=== PATIENT | female | born 1960 | race Caucasian/White ===

== ENCOUNTER 2016-11-09 11:38 | Emergency (ER) | payer OTHER ==
[~2016-11-09] VITALS: Wt 67.0 kg
[2016-11-09] MEDS ORDERED: DIPHTH/TET/ACEL PERTUSS (ADULT) 0.5 ML VIAL IM* ONE (13:00)
--- NOTE | 2016-11-09 13:14 | ERD ---
ER Documentation Chief Complaint Date/Time DATE: 11/09/16 TIME: 13:07 Chief Complaint dog bite to right index finger since yesterday. HPI This 66-year-old female who presents to the emergency department today after sustaining a dog bite to her right index finger. Patient states she was bit by her customer's dog. She states that she went and denies urgent care and was told to get several things done here in the emergency room. Denies any fevers or chills. States she is not up-to-date on her tetanus vaccine. ROS All systems reviewed and are negative except as per history of present illness. Allergies Allergies: Coded Allergies: No Known Allergy (Unverified , 11/09/16) PMhx/Soc Medical and Surgical Hx: pt denies Medical Hx, pt denies Surgical Hx History of Surgery: No Anesthesia Reaction: No Hx Neurological Disorder: No Hx Respiratory Disorders: No Hx Cardiac Disorders: No Hx Psychiatric Problems: No Hx Miscellaneous Medical Probl: No Hx Alcohol Use: No Hx Substance Use: No Hx Tobacco Use: Yes Smoking Status: Current every day smoker Physical Exam Vitals Vital Signs Date Time Temp Pulse Resp B/P Pulse Ox O2 Delivery O2 Flow Rate FiO2 11/09/16 11:47 99.5 89 20 160/75 100 Physical Exam Const: No acute distress, pleasant, Head: Atraumatic Eyes: Normal Conjunctiva ENT: Normal External Ears, Nose and Mouth. Neck: Full range of motion..~ No meningismus. Resp: Clear to auscultation bilaterally Cardio: Regular rate and rhythm, no murmurs Abd: Soft, non tender, non distended. Normal bowel sounds Skin: Index Finger with evidence of 2 dog bites on side of right finger with erythema. MSK: Right index finger with evidence of 2 dog bite on both side of right finger. Full active range of motion. No evidence of tendon involvement. Pulses 2+. Distal neurovascularly intact. Good cap refill. Neur: Awake and alert Psych: Normal Mood and Affect Results 24 hrs Current Medications Medications (Trade) Dose Ordered Sig/[place] Route PRN Reason Start Time Stop Time Status Last Admin Dose Admin Diphtheria/ Tetanus/Acell Pertussis (Adacel) 0.5 ml ONCE ONCE IM* 11/09/16 13:00 11/09/16 13:01 DC 11/09/16 12:43 DIAGNOSTIC IMAGING REPORT Patient: OTILIO RAJPUT : 1960 Age: 56 Sex: F MR #: [id number] DOS: 11/09/16 0000 Ordering MD: SUHAIL BARRAGAN PA-C Location: [facility] Room/Bed: PROCEDURE: XR right 2nd finger(s). CLINICAL INDICATION: Finger pain/ dog bite TECHNIQUE: Three views are available for review. COMPARISON: No prior studies are available for comparison. FINDINGS: There is normal mineralization, architecture and alignment. No fracture or osseous lesion is identified. The joints are unremarkable. The soft tissues are unremarkable. IMPRESSION: Unremarkable examination. RPTAT: HGDB .Didier Magallanes MD, Date Time Electronically viewed and signed by .Didier Magallanes MD, MD on 11/09/2016 13:44 .B/ CC: SUHAIL BARRAGAN PA-C Procedures/MDM This is a 56-year-old female who presents to emergency department today after being bit by a dog yesterday. Patient was seen at [place] urgent care and came here to the emergency department with instructions for an x-ray, tetanus, and blood cultures to rule out osteomyelitis. Patient was also given a prescription for Augmentin and the Mupirocin and Motrin. Prescription given that she brought and indicated she had been given a shot of Rocephin while at urgent care. On exam patient does have full active range of motion of her joint and I do have low suspicion for osteomyelitis and I do not feel that blood cultures are necessary. Patient is afebrile and otherwise well-appearing however given, I did obtain images. Per the radiology report images of the right second index finger is unremarkable. There is no acute fracture or dislocation. Patient's symptoms at this time consistent with dog bite and localized skin infection Wound was cleaned here in the emergency department. Patient was given a tetanus as it has been greater than 5 years since her last tetanus shot. Patient was instructed to cotton picker the prescription that she was given earlier for the Augmentin and the Mupirocin. Patient was also instructed to return in 2 days for a wound check. At this time there is no indication for sutures. Patient was given a work note. At this time the patient is stable for discharge and outpatient management. Patient should follow up with their PCP in the next 1-2 days. They may return to the emergency department sooner for any persistent or worsening of symptoms. Patient understood and agreed with the plan. Dr. Doss has seen and evaluated the patient and he is in agreement with the plan. Departure Diagnosis: Primary Impression: Dog bite Encounter type: initial encounter Qualified Code: W54.0XXA - Dog bite, initial encounter Condition: Fair SUHAIL BARRAGAN PA-C Nov 09, 2016 13:14
--- NOTE | 2016-11-09 13:44 | RADRPT ---
PROCEDURE: XR right 2nd finger(s). CLINICAL INDICATION: Finger pain/ dog bite TECHNIQUE: Three views are available for review. COMPARISON: No prior studies are available for comparison. FINDINGS: There is normal mineralization, architecture and alignment. No fracture or osseous lesion is identi fied. The joints are unremarkable. The soft tissues are unremarkable. IMPRESSION: Unremarkable examination. RPTAT: HGDB .Didier Magallanes MD, MD Date Time Electronically viewed and signed by .Didier Magallanes MD, on 11/09/2016 13:44 .B/
== END 2016-11-09 14:15 | disposition home or self-care (01) ==
LOC: E/R 11:38 → FTE 14:15
DX: S61.250A Open bite of right index finger without damage to nail, initial encounter (principal); F17.210 Nicotine dependence, cigarettes, uncomplicated; W54.0XXA Bitten by dog, initial encounter; Y92.9 Unspecified place or not applicable; Z23 Encounter for immunization
CPT/HCPCS: 73140; 90471

== ENCOUNTER 2016-11-11 09:54 | Emergency (ER) | payer OTHER ==
[~2016-11-11] VITALS: Wt 61.0 kg
--- NOTE | 2016-11-11 10:28 | ERD ---
ER Documentation Chief Complaint Date/Time DATE: 11/11/16 TIME: 10:24 Chief Complaint RECHECK OF RIGHT INDEX FINGER HPI This is a 56-year-old female who presents to emergency department today for a wound check for a dog bite she sustained a couple of days ago. Denies any fevers or chills. States she is taking her antibiotics as prescribed. ROS All systems reviewed and are negative except as per history of present illness. Allergies Allergies: Coded Allergies: No Known Allergy (Unverified , 11/11/16) PMhx/Soc History of Surgery: No Anesthesia Reaction: No Hx Neurological Disorder: No Hx Respiratory Disorders: No Hx Cardiac Disorders: No Hx Psychiatric Problems: No Hx Miscellaneous Medical Probl: No Hx Alcohol Use: No Hx Substance Use: No Hx Tobacco Use: Yes Smoking Status: Never smoker Physical Exam Vitals Vital Signs Date Time Temp Pulse Resp B/P Pulse Ox O2 Delivery O2 Flow Rate FiO2 11/11/16 09:56 98.0 85 20 118/70 99 Physical Exam Const: No acute distress Head: Atraumatic Eyes: Normal Conjunctiva ENT: Normal External Ears, Nose and Mouth. Neck: Full range of motion..~ No meningismus. Resp: Clear to auscultation bilaterally Cardio: Regular rate and rhythm, no murmurs Abd: Soft, non tender, non distended. Normal bowel sounds Skin: Evidence of 2 small areas of dog bite medial and lateral aspect of index finger. No erythema or warmth. No purulent drainage. MSK: Evidence of 2 small areas of dog bite medial lateral aspect of index finger. No erythema or warmth. No purulent drainage. Full active range of motion of finger. Neur: Awake and alert Psych: Normal Mood and Affect Procedures/MDM This is a 56-year-old female who presents to the emergency department today for a wound check of a dog bite that she sustained a couple of days ago. I did actually see this patient on her initial presentation to the emergency department 2 days ago. Patient had only been given a shot of Rocephin at an outside urgent care. Today on physical exam the area of erythema is much improved. Patient does have full active range of motion of her finger and I have low suspicion for deep space infection, cellulitis or flexor tenosynovitis. Wound appears to be healing well. I placed the patient on Bactrim and Keflex. Patient was instructed to continue taking her antibiotics as prescribed. She may continue using the Mupirocin cream as well that she was prescribed urgent care. At this time the patient is stable for discharge and outpatient management. Patient should follow up with their PCP in the next 1-2 days. They may return to the emergency department sooner for any persistent or worsening of symptoms. Patient understood and agreed with the plan. Departure Diagnosis: Primary Impression: Encounter for wound re-check Condition: Fair Patient Instructions: Wound Care Referrals: your PCP Additional Instructions: Call your primary care doctor TOMORROW for an appointment during the next 1-2 days.See the doctor sooner or return here if your condition worsens before your appointment time. Continue taking your antibiotics as prescribed Keep wound clean SUHAIL BARRAGAN PA-C Nov 11, 2016 10:28
== END 2016-11-11 10:30 | disposition home or self-care (01) ==
LOC: FTE 09:54
DX: Z48.01 Encounter for change or removal of surgical wound dressing (principal)
CPT/HCPCS: 99281